=== PATIENT | female | born 1970 | race Caucasian/White ===

== ENCOUNTER 2021-10-05 12:01 | Outpatient (CLI) | payer BC ==
[2021-10-05 13:05] LABS: #Basophils 0.1 10x3/uL (0.0-0.2); #Eosinphils 0.2 10x3/uL (0.0-0.5); #Monocytes 0.4 10x3/uL (0.0-1.1); #Neutrophils 5.3 10x3/uL (1.5-8.4); %Eosinophils 2.7 % (0.0-6.0); %Lymphocytes 25.2 % (18.0-47.0); %Monocytes 5.4 % (0.0-10.0); %Neutrophils 65.6 % (40.0-75.0); Hemoglobin 13.8 g/dL (12.0-15.5); Mean Corpuscular HGB CONC 33.8 g/dL (32.0-36.0); Mean Corpuscular Hemoglobin 29.5 pg (27.0-33.0); Mean Corpuscular Volume 87.2 fl (81.6-98.3); Mean Platelet Volume 9.1 fl (7.4-10.4); Platelet Count 253 10x3/uL (150-450); RBC Distribution Width 12.7 % (11.5-14.5); Red Blood Cell (RBC) Count 4.68 10x6/uL (3.90-5.03); White Blood Cell (WBC) Count 8.1 10x3/uL (3.5-10.5)
[2021-10-05 13:30] LABS: Anion Gap 17 mmol/L (10-20); BUN (Urea Nitrogen) 8 mg/dL (7.0-18.7); Calc. Creatinine Clearance 0 mL/min (70-130); Calcium 8.9 mg/dL (7.8-10.44); Carbon Dioxide 21 mmol/L (22-29); Chloride 108 mmol/L (98-107); Glucose 102 mg/dL (70-105); Potassium 4.1 mmol/L (3.5-5.1); Sodium 142 mmol/L (136-145)
[2021-10-06 00:54] LABS: SARS-CoV-2 PCR by NAA DETECTED (NotDetected)
== END 2021-10-05 12:02 | disposition home or self-care (01) ==
LOC: LABBT 12:01
PROVIDERS: ATTEND Specialist
DX: U07.1 COVID-19 (principal); Z01.812 Encounter for preprocedural laboratory examination; K64.8 Other hemorrhoids
CPT/HCPCS: 80048; 85025; U0003; U0005

== ENCOUNTER 2021-11-14 05:57 | Day surgery (SDC) | payer BC ==
[2021-11-13 10:35] VITALS: BMI 35.2
[2021-11-14] MEDS ORDERED: SUGAMMADEX SODIUM 200 MG/2 ML VIAL ONE (06:51)
[2021-11-14] MEDS ORDERED: fentaNYL Citrate/PF 100 MCG/2 ML SYRINGE ONE (06:51)
[2021-11-14] MEDS ORDERED: Lidocaine 1% w/Epinephrine 1:100K 20 ML VIAL ONE (06:57)
[2021-11-14] MEDS ORDERED: Bupivacaine 0.25% HCL 30 ML VIAL ONE (06:57)
[2021-11-14] MEDS ORDERED: Acetaminophen 500 MG TAB ONE (06:57)
[2021-11-14] MEDS ORDERED: Ketorolac Tromethamine 30 MG/ML VIAL ONE (06:57)
[2021-11-14] MEDS ORDERED: Famotidine/PF 20 mg/2ml Vial ONE (07:00)
[2021-11-14] MEDS ORDERED: CEFAZOLIN 2 GM VIAL ONE (07:26)
[2021-11-14] MEDS ORDERED: Sodium Chloride 0.9% 100 ML ONE (07:26)
[2021-11-14] MEDS ORDERED: Lidocaine 1% PF 5 ML VIAL ONE (07:43)
[2021-11-14] MEDS ORDERED: Dexamethasone 20 MG/5 ML VIAL ONE (07:43)
[2021-11-14] MEDS ORDERED: Ondansetron PF 4 MG/2 ML Vial ONE (07:43)
[2021-11-14] MEDS ORDERED: PROPOFOL 200 MG/20 ML VIAL ONE (07:43)
== END 2021-11-14 10:10 | disposition home or self-care (01) ==
LOC: SDC 05:57
PROVIDERS: ATTEND Specialist
PROC: 06BY0ZC Excision of Hemorrhoidal Plexus, Open Approach (ICD-10-PCS; principal; 2021-11-14)
DX: K64.8 Other hemorrhoids (principal); K64.4 Residual hemorrhoidal skin tags; F17.200 Nicotine dependence, unspecified, uncomplicated; Z79.899 Other long term (current) drug therapy
CPT/HCPCS: J0690; J1100; J1885; J2405; J2704; J3490; S0020; S0028

== ENCOUNTER 2024-04-10 10:35 | Outpatient (CLI) | payer BC | END 2024-04-10 10:36 | disposition home or self-care (01) | LOC: BICULT 10:35 | PROVIDERS: ATTEND Internal Medicine | DX: K76.0 Fatty (change of) liver, not elsewhere classified (principal); K52.9 Noninfective gastroenteritis and colitis, unspecified; F10.10 Alcohol abuse, uncomplicated; Z83.79 Family history of other diseases of the digestive system | CPT/HCPCS: 76705 ==